=== PATIENT | female | born 1965 | race Caucasian/White ===

== ENCOUNTER → 2022-12-22 | Emergency (ER) | payer BC ==
[~2022-12-22] VITALS: Ht 167.6 cm; Wt 62.6 kg
[2022-12-22 14:47] VITALS: BP 191/92; PULSE 75; RESP 16; O2SAT 97
== END ==
LOC: EDH 14:19
DX: M79.662 Pain in left lower leg (principal); Z53.21 Procedure and treatment not carried out due to patient leaving prior to being seen by health care provider

== ENCOUNTER → 2022-12-22 | Outpatient (CLI) | payer BC | END | disposition home or self-care (01) | LOC: RAH 13:41 | PROVIDERS: ATTEND Family Medicine | DX: I82.432 Acute embolism and thrombosis of left popliteal vein (principal); E11.9 Type 2 diabetes mellitus without complications | CPT/HCPCS: 93971 ==